=== PATIENT | male | born 1960 | race Hispanic/Latino ===

== ENCOUNTER 2017-11-13 08:50 | Emergency (ER) | payer SELFPAY ==
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
[2017-11-13] MEDS ORDERED: TORADOL IM ONE (10:22)
[2017-11-13] MEDS ORDERED: PERCOCET 5/325 PO ONE (10:22)
[2017-11-13 10:26] VITALS: BP 160/92
--- NOTE | 2017-11-13 11:12 | XRay Report ---
RIGHT HUMERUS RADIOGRAPHS INDICATION: Right arm pain after injury. COMPARISON: None similar. FINDINGS: AP and lateral right humerus radiographs demonstrate intact bones, included joints and soft tissues. Right nipple ornament. CONCLUSION: Normal right humerus radiographs. Thank you for the opportunity to participate in this patient's care.
--- NOTE | 2017-11-13 11:13 | XRay Report ---
RIGHT SHOULDER RADIOGRAPHS INDICATION: Injury with right shoulder pain. COMPARISON: None similar. FINDINGS: Frontal and Y views of the right shoulder, 3 projections demonstrate normal humeral head contour, well positioned against the glenoid. Normal acromioclavicular joint. Preserved scapular contour. Normal visualized soft tissues, right ribs and lung. Few extrinsic ornaments. CONCLUSION: No acute right shoulder radiographic abnormality, as described. Thank you for the opportunity to participate in this patient's care.
== END 2017-11-13 12:34 | disposition home or self-care (01) ==
LOC: ED 08:50
DX: S46.911A Strain of unspecified muscle, fascia and tendon at shoulder and upper arm level, right arm, initial encounter (principal); M79.601 Pain in right arm; F17.200 Nicotine dependence, unspecified, uncomplicated; J44.9 Chronic obstructive pulmonary disease, unspecified; V29.9XXA Motorcycle rider (driver) (passenger) injured in unspecified traffic accident, initial encounter; Y93.89 Activity, other specified; Y99.8 Other external cause status; Y92.410 Unspecified street and highway as the place of occurrence of the external cause
CPT/HCPCS: 73030; 73060; 96372; 99284; J1885